=== PATIENT | female | born 1980 | race Caucasian/White ===

== ENCOUNTER 2017-01-17 03:10 | Emergency (ER) | payer OTHER ==
[~2017-01-17] VITALS: Ht 157.5 cm; Wt 46.0 kg
[2017-01-17] MEDS ORDERED: LANTUS2P SQ (03:14)
[2017-01-17] MEDS ORDERED: LITH8SYP PO (03:14)
[2017-01-17] MEDS ORDERED: DILA30CA PO (03:14)
[2017-01-17 03:15] VITALS: BP 120/68; PULSE 99; RESP 16; TEMP 99.2; O2SAT 100
--- NOTE | 2017-01-17 03:39 | PD ---
HPI Chief Complaint: Medical Clearance Time Seen by Provider: 03:27 Travel History International Travel<30 days: No Contact w/Intl Traveler<30days: No Traveled to known affect area: No History of Present Illness HPI The patient is a 36 year old female who presents to the [facility] emergency department with a history of reportedly becoming unresponsive in the back of a police vehicle prior to arrival. The patient was slumped over according to the officer. Ambulance services were called. When they arrived the patient continued to be slumped over and breathing normally. They attempted to assess her pupils and she was squeezing her eyes shut. The patient 's blood sugar was noted prior to arrival to be 96. In route to this facility the patient became suddenly awake and alert and reported that she had had a seizure. There was no witnessed seizure activity. The patient has no trauma to her tongue. She had no loss of bowel or bladder control. She reports that she does have a history of seizure disorder and is on Dilantin. The patient was placed under arrest related to a prior warrant. LMP: Unable to be recalled. She reports that she has had a bilateral tubal ligation. [facility] Past Medical History Narrative Medical The patient's past medical history is significant for diabetes, IV polysubstance abuse, history of reported seizure activity, history of psychiatric disorder. I review the electronic medical record shows no evidence of the patient previously having of seizure disorder or being on Dilantin. Anxiety: Yes Depression: Yes Cardiovascular Problems: No Diabetes: Yes Patient Takes Glucophage: No Diminished Hearing: No Gastrointestinal Disorders: No Immune Disorder: Yes (HEP C) Musculoskeletal: No Neurologic: No Reproductive: Yes (ENDOMETRIOSIS) Respiratory: No Immunizations Current: Yes Migraines: Yes Seizures: Yes Sleep Apnea: No Tetanus Vaccination: > 5 Years Influenza Vaccination: No PNEUMOCCOCAL Vaccine (Year): 3 ?: Not : 3 Para: 3 Miscarriage: 0 : 0 Ovarian Cysts: Yes Tubal Ligation: Yes Past Surgical History Narrative Surgical The patient's past surgical history is significant for a bilateral tubal ligation. Tonsillectomy: Yes Other Surgery: Yes ("ONE WEEK AFTER TONSILLECTOMY HAS SURGERY TO REMOVE BL.CLOT ,VESSELS POPPED") Social History Alcohol Use: Yes (occas) Tobacco Use: Yes (1 PPD) Substance Use: Yes (HX IV DRUG USE, HX DILAUDID ABUSE, COCaiNE USE) Allergies-Medications (Allergen,Severity, Reaction): Coded Allergies: Codeine (Verified Allergy, Severe, "ITCHING,RASH", 01/17/17) Doxycycline (Verified Allergy, Severe, TONGUE SWELLING, 01/17/17) Fioricet (Verified Allergy, Severe, FELT LOOPY, 01/17/17) Darvocet-N 100 (Verified Adverse Reaction, Severe, "VOMITING AND DIZZY", ) *MDRO Multi-Drug Resistant Organism (Verified Adverse Reaction, Unknown, ) MRSA leg wound 09/07/15. Reported Meds & Prescriptions Reported Meds & Active Scripts Active Reported Bonfield Liq 300 Mg/5 Ml Liq 150 Mg PO QID Lantus Inj (Insulin Glargine) 1,000 Unit/10 Ml Vial 1 Units SQ HS Dilantin (Phenytoin Extended) 30 Mg Cap 30 Mg PO TID Review of Systems Except as stated in HPI: all other systems reviewed are Neg General / Constitutional: No: Fever Eyes: No: Visual changes HENT: No: Headaches Cardiovascular: No: Chest Pain or Discomfort Respiratory: No: Shortness of Breath Gastrointestinal: No: Abdominal Pain Genitourinary: No: Dysuria Musculoskeletal: No: Pain Skin: No Rash Neurologic: Positive: Weakness (generalized weakness), Change in Mentation, Seizures, No: Focal Abnormalities, Slurred Speech, Sensory Disturbance Psychiatric: Positive: Substance Abuse, No: Depression, Mood Disorder Endocrine: No: Polydipsia Hematologic/Lymphatic: No: Easy Bruising Physical Exam Narrative General: The patient is a well-developed well-nourished female in no acute distress, disheveled appearing on examination with track echeverria noted on her extremities. Head and Neck exam: Head is normocephalic atraumatic. Eyes: EOMI, pupils are equal round and reactive to light. Nose: Midline septum with pink mucous membranes Mouth: No evidence of trauma to her tongue. Dentition unremarkable. Moist mucus membranes. Posterior oropharynx is not erythematous. No tonsillar hypertrophy. Uvula midline. Airway patent. Neck: No palpable lymphadenopathy. No nuchal rigidity. No thyromegaly. Cardiovascular: Regular rate and rhythm without murmurs, gallops, or rubs. Lungs: Clear to auscultation bilaterally. No wheezes, rhonchi, or rales. Abdomen: Soft, without tenderness to palpation in all 4 quadrants of the abdomen. No guarding, rebound, or rigidity. Normal bowel sounds are audible. No tenderness on palpation of McBurney's point. Extremities: No clubbing, cyanosis, or edema. No calf tenderness on palpation. Back: No spinous process tenderness to palpation. No costovertebral angle tenderness to palpation. Neurologic Exam: She is awake and alert. The patient has no evidence of a postictal state. The patient is oriented to person, place, time, and situation. Cranial nerves 2-12 were intact on exam. Strength is 5/5 in all 4 extremities. No sensory deficits noted. Skin Exam: No rash noted. Intact skin that is warm and dry. The patient has track echeverria noted on her extremities. Data Data Last Documented VS Vital Signs Date Time Temp Pulse Resp B/P Pulse Ox O2 Delivery O2 Flow Rate FiO2 01/17/17 03:45 16 99 01/17/17 03:15 99.2 99 120/68 Orders Complete Blood Count With Diff (01/17/17 03:30) Basic Metabolic Panel (Bmp) (01/17/17 03:30) Beta Hcg (Quant/Titer) (01/17/17 03:30) Bonfield (Li) (01/17/17 03:30) Phenytoin (Dilantin) (01/17/17 03:30) Drug Screen, Random Urine (01/17/17 03:30) Alcohol (Ethanol) (01/17/17 03:30) Iv Access Insert/Monitor (01/17/17 03:30) Ecg Monitoring (01/17/17 03:30) Oximetry (01/17/17 03:30) Labs Laboratory Tests Test 01/17/17 01/17/17 01/17/17 03:40 04:00 04:10 White Blood Count 6.8 TH/MM3 Red Blood Count 4.96 MIL/MM3 Hemoglobin 13.8 GM/DL Hematocrit 42.2 % Mean Corpuscular Volume 85.0 FL Mean Corpuscular Hemoglobin 27.8 PG Mean Corpuscular Hemoglobin 32.7 % Concent Red Cell Distribution Width 14.5 % Platelet Count 327 TH/MM3 Mean Platelet Volume 7.5 FL Neutrophils (%) (Auto) 47.7 % Lymphocytes (%) (Auto) 43.1 % Monocytes (%) (Auto) 7.8 % Eosinophils (%) (Auto) 0.8 % Basophils (%) (Auto) 0.6 % Neutrophils # (Auto) 3.2 TH/MM3 Lymphocytes # (Auto) 2.9 TH/MM3 Monocytes # (Auto) 0.5 TH/MM3 Eosinophils # (Auto) 0.1 TH/MM3 Basophils # (Auto) 0.0 TH/MM3 CBC Comment DIFF FINAL Differential Comment Sodium Level 136 MEQ/L Potassium Level 3.3 MEQ/L Chloride Level 103 MEQ/L Carbon Dioxide Level 23.1 MEQ/L Anion Gap 10 MEQ/L Blood Urea Nitrogen 11 MG/DL Creatinine 0.78 MG/DL Estimat Glomerular Filtration 84 ML/MIN Rate Random Glucose 99 MG/DL Calcium Level 9.6 MG/DL Human Chorionic Gonadotropin, LESS THAN 1 Quant MIU/ML Phenytoin (Dilantin) Level LESS THAN 0.4 MCG/ML Ethyl Alcohol Level LESS THAN 3 MG/DL Urine Opiates Screen NEG Urine Barbiturates Screen NEG Urine Amphetamines Screen POS Urine Benzodiazepines Screen NEG Urine Cocaine Screen NEG Urine Cannabinoids Screen POS Bonfield Level LESS THAN 0.1 MEQ/L MDM Medical Decision Making Medical Screen Exam Complete: Yes Emergency Medical Condition: Yes Medical Record Reviewed: Yes Differential Diagnosis Malingering, versus pseudoseizure, versus substance intoxication, versus withdrawal syndrome, versus seizure activity related to medication noncompliance Narrative Course During the course of the patients emergency department visit, the patients history, examination, and differential diagnosis were reviewed with the patient. The patient had IV access obtained and blood work sent for analysis. The patient is placed on a bus monitor with oximetry and blood pressure monitoring. The patients laboratory studies were reviewed and remarkable for a CBC that is within normal limits, CMP is remarkable for potassium of 3.3 which was supplemented orally, test is negative, urine drug screen is positive for amphetamines, cannabinoids. Dilantin level is less than 0.4, alcohol level less than 3, lithium level less than 0.1. The patient's electronic medical record was reviewed and I see no prior history of seizure disorder or being on Dilantin. The patient will be discharged into police custody. The patient has been medically cleared. The patient is resting comfortably and feels better, is alert and in no distress. The patients results and examination findings were discussed with the patient. The repeat examination is unremarkable and benign. The history, exam, diagnostic testing, and current condition do not suggest any significant pathology to warrant further testing, continued ED treatment, admission, or surgical evaluation at this point. The vital signs have been stable. The patient does not have uncontrollable pain, intractable vomiting, or other significant symptoms. The patient's condition is stable and appropriate for discharge. The patient will pursue further outpatient evaluation with a primary care physician or other designated or consulting physician as indicated in the discharge instructions. The patient expressed understanding and was agreeable with this plan. Diagnosis Primary Impression: Altered mental status Qualified Code: R41.82 - Altered mental status, unspecified altered mental status type Additional Impression: Polysubstance abuse Referrals: Primary Care Physician 2 days Patient Instructions: General Instructions, Polysubstance Abuse (ED) Med/Other Pt SpecificInfo: No Change to Meds Disposition: [address] LAW ENFORCEMNT Condition: Stable Selena Lang MD Jan 17, 2017 03:39
[2017-01-17 03:45] VITALS: RESP 16; O2SAT 99
[2017-01-17 04:15] LABS: AUTOMATED NEUTROPHIL # 3.2 TH/MM3 (1.8-7.7); BASOPHIL % 0.6 % (0.0-2.0); EOSINOPHIL # 0.1 TH/MM3 (0-0.4); EOSINOPHIL % 0.8 % (0.0-4.0); HEMATOCRIT 42.2 % (35.0-46.0); HEMO FLAGS DIFF FINAL; LYMPH % 43.1 % (9.0-44.0); LYMPHOCYTE # 2.9 TH/MM3 (1.0-4.8); MEAN CORPUSCULAR HEMOGLOBIN 27.8 PG (27.0-34.0); MEAN CORPUSCULAR HGB CONC 32.7 % (32.0-36.0); MONO % 7.8 % (0.0-8.0); NEUT % 47.7 % (16.0-70.0); PLATELET COUNT 327 TH/MM3 (150-450); RED BLOOD COUNT 4.96 MIL/MM3 (4.00-5.30); RED CELL DISTRIBUTION WIDTH 14.5 % (11.6-17.2); WHITE BLOOD COUNT 6.8 TH/MM3 (4.0-11.0)
[2017-01-17 04:25] LABS: ANION GAP 10 MEQ/L (5-15); BICARBONATE 23.1 MEQ/L (21.0-32.0); BLOOD UREA NITROGEN 11 MG/DL (7-18); CHLORIDE 103 MEQ/L (98-107); GLOMERULAR FILTRATION RATE 84 ML/MIN (>89); POTASSIUM 3.3 MEQ/L (3.5-5.1); SODIUM (NA) 136 MEQ/L (136-145)
[2017-01-17 04:28] LABS: BETA HCG QUANT LESS THAN 1 MIU/ML (0-5)
[2017-01-17 04:36] LABS: AMPHETAMINE, URINE POS (NEG); BARBITURATES, URINE NEG (NEG); COCAINE, URINE NEG (NEG)
[2017-01-17] MEDS ORDERED: POTASSIUM CHLORIDE 20 MEQ CONTROLLED RELEASE TAB PO ONE (05:45)
[2017-01-17] MEDS ORDERED: AMMONIA AROMATIC INHALANT 0.33 ML ONE (05:55)
[2017-01-17] MEDS ORDERED: AMMONIA AROMATIC INHALANT 0.33 ML NASAL ONE (06:00)
== END 2017-01-17 06:10 ==
LOC: NEPE 03:10
DX: R41.82 Altered mental status, unspecified (principal); F41.9 Anxiety disorder, unspecified; E11.9 Type 2 diabetes mellitus without complications; B19.20 Unspecified viral hepatitis C without hepatic coma; R56.9 Unspecified convulsions; F17.200 Nicotine dependence, unspecified, uncomplicated
CPT/HCPCS: 80048; 80178; 80185; 80307; 84702; 85025; 99283